=== PATIENT | female | born 1965 | race Caucasian/White ===

== ENCOUNTER → 2016-06-07 | Outpatient (CLI) | payer OTHER ==
[~2016-06-07] VITALS: Ht 172.7 cm; Wt 93.3 kg
[~2016-06-07] MED LIST: ESOMEPRAZOLE MA20 MG PO; FLUOXETINE HCL40 MG PO; MOBIC15 MG PO; OXYCONTIN10 M1 PO; PROGESTERONE100 MG PO; WELLBUTRIN XL300 MG PO; [UNRECOGNIZED DRUG - REMARK]
--- NOTE | ~2016-06-07 | HPC ---
[facility] [place] [address] PAIN MANAGEMENT CONSULTATION Name: MOJGAN MONTIEL [facility]: [facility] [id number] Admission: 06/07/16 Attend Phys: Aron Angeles DO Discharge: Date of : 61 Report #: [id number] THIS REPORT FOR: //name// CC: Neel Angeles The patient is a 50-year-old female seen in consultation on 12/18/2015, diagnosed with symptomatic lumbar radiculopathy. The patient was given a midline epidural injection at that time with really nominal improvement in symptoms. The patient returns to pain clinic today noting pain continues to be problematic, notes pain is primarily in the low back, left hip and leg down the lateral aspect and what appears to be in L4 distribution. Notes pain got worse about 6 weeks ago without antecedent trauma and overuse, describes tingling, sharp, and aching pain, she rates a 9 on a 0-10 visual analog scale. Again, she notes really nominal relief in the midline epidural injection back in November. PHYSICAL EXAMINATION: Shows a 50-year-old female, BMI is 31.3 kg/m2. Vital signs are stable as noted in the EMR. Rises from chair using armrest. Gait is tandem. Some diffuse tenderness across the low back. No discrete trigger points are noted. Slight decreased left hip flexion strength, though straight leg raise is equivocal. Patellar and Achilles reflexes are diminished, but preserved. We reviewed diagnostic findings including MRI somewhat dated from October 2012, noting L5-S1 retrolisthesis with loss of disk height, small disk bulge, ligamentum flavum hypertrophy. L4-L5, noting left lateral disk protrusion with annular tear at this level. ASSESSMENT: Symptomatic lumbar radiculopathy by clinical exam and history. RECOMMENDATIONS: 1. Continue Meloxicam 15 mg, prescription renewed with 5 refills. 2. We will move forward with a left transforaminal epidural injection today (L4-L5). Follow up in 3-4 weeks for reevaluation. If symptoms do not improve, may consider spinal cord stimulator as possible therapeutic option, though we would want to get a newer MRI to rule out any surgically correctable pathology. PROCEDURE: Transforaminal epidural injection under fluoroscopy. PROCEDURE NOTE: After both written and informed consent was obtained including risk of spinal cord damage, infection, increased pain and paralysis, the patient agreed to proceed. The patient was taken to the fluoroscopy suite, placed in a prone position with appropriate abdominal bolstering. After sterile prep with ChloraPrep and sterile drape, a skin wheal with 1% Xylocaine was raised. A 22 gauge 4-1/2 inch epidural Tuohy needle was inserted. From an oblique approach into the posterior-superior aspect of the left L4-L5 neural foramen with continuous pressure on the glass syringe plunger for loss of resistance. [address] [address] PAIN MANAGEMENT CONSULTATION Name: MOJGAN MONTIEL Room #: REG [facility] Sahil#: [id number] Admission: 06/07/16 Attend Phys: Aron Angeles DO Discharge: Date of : 61 Report #: [id number] syringe was filled with 2 cc of 0.1 Xylocaine. The glass loss of resistance syringe was removed. A low volume extension tubing was connected, negative aspiration was accomplished for cerebrospinal fluid or blood. 1 mL of Omnipaque was injected which showed spread both within the epidural space and laterally along the nerve root. This was followed with 80 mg of triamcinolone plus 1 mL of 1.5% preservative-free Xylocaine. Needle was partially withdrawn, 0.5 mL of Xylocaine was injected to clear the needle and the needle was removed. The area was cleansed, band-aid was applied. The patient was allowed to ambulate to the recovery room, discharged in good and stable condition. <ELECTRONICALLY SIGNED> By: Aron Angeles DO 06/10/16 [id number] Aron Angeles DO /nt
[2016-06-07 08:55] VITALS: BP 120/82
== END ==
LOC: PAIN 06:45
DX: M54.16 Radiculopathy, lumbar region (principal)

== ENCOUNTER → 2018-04-10 | Outpatient (CLI) | payer OTHER | LOC: MRI 09:52 | DX: M47.816 Spondylosis without myelopathy or radiculopathy, lumbar region (principal); M48.061 Spinal stenosis, lumbar region without neurogenic claudication ==

== ENCOUNTER → 2018-08-03 | Outpatient (CLI) | payer OTHER | LOC: ULTRA 14:28 | DX: M79.89 Other specified soft tissue disorders (principal); R60.0 Localized edema ==

== ENCOUNTER → 2020-06-01 | Outpatient (CLI) | payer OTHER | LOC: RAD 12:07 | PROVIDERS: ATTEND Nurse Practitioner | DX: N63.20 Unspecified lump in the left breast, unspecified quadrant (principal); Z98.82 Breast implant status ==

== ENCOUNTER → 2020-06-07 | Outpatient (CLI) | payer OTHER | LOC: CAT 10:28 | PROVIDERS: ATTEND Family Medicine | DX: Z13.6 Encounter for screening for cardiovascular disorders (principal); I25.10 Atherosclerotic heart disease of native coronary artery without angina pectoris; E78.00 Pure hypercholesterolemia, unspecified ==